=== PATIENT | male | born 1990 | race Caucasian/White ===

== ENCOUNTER 2019-02-05 12:40 | Emergency (ER) | payer OTHER ==
[~2019-02-05] VITALS: Ht 180.3 cm; Wt 116.3 kg
[2019-02-05 12:44] VITALS: BP 141/87
[2019-02-05] MEDS ORDERED: ALPR-624 PO (13:13)
[2019-02-05] MEDS ORDERED: SERT50TA10 PO (13:13)
== END 2019-02-05 13:25 | disposition home or self-care (01) ==
LOC: ER 12:41
DX: F41.9 Anxiety disorder, unspecified (principal); Z76.0 Encounter for issue of repeat prescription; Z79.899 Other long term (current) drug therapy
CPT/HCPCS: 99283